=== PATIENT | female | born 1990 | race Caucasian/White ===

== ENCOUNTER → 2017-07-11 16:07 | Observation (INO) ==
[2017-07-11 14:49] LABS: Bilirubin,Urine Negative (Negative); Blood,Urine Small (Negative); Clarity,Urine Cloudy (Clear); Color,Urine Yellow (Yellow); Glucose,Urine (UA) Normal (Normal); Ketones,Urine Negative (Negative); Leukocyte Esterase,Urine Large (Negative); Nitrite,Urine Negative (Negative); Protein,Urine Trace mg/dL (Neg-Trace); Specific Gravity,Urine 1.018 (1.010-1.025); Urobilinogen,Urine Normal (Normal)
[2017-07-11 14:51] LABS: Bacteria,Urine Moderate per hpf (None-Few); Hyaline Casts,Urine None Seen per lpf (None-Few); Squamous Epithelial Cell,Urine Many per lpf (None-Few); WBC,Urine 30-50 per hpf (0-3)
[2017-07-11 14:56] LABS: Amphetamine Screen,Urine Negative ng/mL (Cutoff=1000); Barbiturate Screen,Urine Negative ng/mL (Cutoff=200); Benzodiazepines Screen,Urine Negative ng/mL (Cutoff=200); Cannabinoid Screen,Urine Negative ng/mL (Cutoff = 50); Cocaine Screen,Urine Negative ng/mL (Cutoff= 300); Opiate Screen,Urine Negative ng/mL (Cutoff=300); Phencyclidine Screen,Urine Negative ng/mL (Cutoff=25)
--- NOTE | 2017-07-11 20:16 | OB/GYN Progress Note ---
Date of Encounter: 07/11/17 Time of Encounter: 15:00 - Assessment and Plan (1) 36 weeks gestation of Status: Acute NST reactive, category I tracing, irregular mild contractions No cervical change per RN exam Discharge home with labor precautions Follow up in office with Dr Acevedo and [facility] (2) Non-stress test reactive Status: Acute Subjective - Subjective Principal diagnosis: Contractions Interval history: Ms Tripathi is a [address] Acevedo's that arrives to triage that c/o contractions. She states she was 4cm in the office last week and has been victorina after intercourse. She denies vaginal bleeding, vaginal leaking, headaches, vision changes, and epigastric pain. Antepartum ROS: new complaints, movement normal, contractions, no loss of fluid, no vaginal bleeding Objective - Vital Signs Vital Signs: Intake and Output 07/11/17 07/11/17 07/11/17 07:59 15:59 23:59 Other: Weight 66.1 kg Patient Weight 07/11/17 23:59 Weight 66.1 kg - Exam FHR: auscultation normal, category 1 (Category I NST) Auscultation: bilateral: normal Abdomen: Present: normal appearance, soft, gravid Uterus: Present: normal. Absent: firm, bogginess, tenderness - Labs Labs: Abnormal lab results Urine Clarity Cloudy (Clear) A 07/11/17 14:40 Urine Blood Small (Negative) H 07/11/17 14:40 Ur Leukocyte Esterase Large (Negative) H 07/11/17 14:40 Urine Microscopic RBC 5-15 per hpf (0-3) H 07/11/17 14:40 Urine Microscopic WBC 30-50 per hpf (0-3) H 07/11/17 14:40 Ur Squamous Epith Cells Many per lpf (None-Few) H 07/11/17 14:40 Urine Bacteria Moderate per hpf (None-Few) H 07/11/17 14:40
== END | disposition home or self-care (01) ==
LOC: 1NENULAB
PROVIDERS: ADMIT Advanced Practice Midwife; ATTEND Advanced Practice Midwife